=== PATIENT | female | born 1960 | race Caucasian/White ===

== ENCOUNTER 2018-03-04 09:24 | Emergency (ER) | payer OTHER ==
--- NOTE | 2018-03-04 09:45 | EDM.PDOC ---
ED HPI GENERAL MEDICAL PROBLEM - General Chief Complaint: Eye Problems Stated Complaint: SWOLLEN EYE Time Seen by Provider: 03/04/18 09:31 Source of Information: Reports: Patient History Limitations: Reports: No Limitations - History of Present Illness INITIAL COMMENTS - FREE TEXT/NARRATIVE: History of present illness: []Patient started having irritation in her left eye yesterday at work and this morning was crusted shut and has been more irritated and turning red. Changes Review of systems: As per history of present illness and below otherwise all systems reviewed and negative. Past medical history: As per history of present illness and as reviewed below otherwise noncontributory. Surgical history: As per history of present illness and as reviewed below otherwise noncontributory. Social history: No reported history of drug or alcohol abuse. Family history: As per history of present illness and as reviewed below otherwise noncontributory. Physical exam: General: Well developed, well nourished in NAD HEENT: Atraumatic, normocephalic, pupils reactive, left conjunctival erythema and excessive tearing no Drainage, mucous membranes moist, throat clear, neck supple, nontender, trachea midline. Lungs: Clear to auscultation, breath sounds equal bilaterally, chest nontender. Heart: S1S2, regular, negative for clicks, rubs, or JVD. Abdomen: NABS, Soft, nondistended, nontender. Negative for masses or hepatosplenomegaly. Negative for costovertebral tenderness. Pelvis: Stable nontender. Genitourinary: Deferred. Rectal: Deferred. Extremities: Atraumatic, negative for cords or calf pain. Neurovascular unremarkable. Neuro: Awake, alert, oriented. Cranial nerves II through XII unremarkable. Cerebellum unremarkable. Motor and sensory unremarkable throughout. Exam nonfocal. Skin:warm and dry Diagnostics: None Therapeutics: None ED Course: Remarkable Impression: Conjunctivitis left Prescriptions: Erythromycin ointment 3 times a day Plan: Off work for one day. Follow-up with ophthalmology her primary care as needed Definitive disposition and diagnosis as appropriate pending reevaluation and review of above. Left Eye Pain Score (Numeric/FACES): 8 - Related Data Allergies Allergy/AdvReac Type Severity Reaction Status Date / Time No Known Allergies Allergy Verified 03/04/18 09:38 Home Meds: Home Meds Clopidogrel [Plavix] 75 mg PO DAILY 03/04/18 [History] Erythromycin Base [Erythromycin 0.5% Ophth Oint] 1 applic OP Q12H #1 tube [Rx] Lisinopril 10 mg PO DAILY 03/04/18 [History] metFORMIN [Glucophage XR] 500 mg PO BID 03/04/18 [History] Past Medical History - Past Health History Medical/Surgical History: Denies Medical/Surgical History ED ROS GENERAL - Review of Systems Review Of Systems: ROS reveals no pertinent complaints other than HPI. ED EXAM GENERAL W FULL EYE - Physical Exam Exam: See Below (See history of present illness) Course - Vital Signs Last Recorded V/S: Last Vital Signs Temp 97.2 F 03/04/18 09:36 Pulse 92 03/04/18 09:36 Resp 18 03/04/18 09:36 BP 144/92 H 03/04/18 09:36 Pulse Ox 96 03/04/18 09:36 Departure - Departure Time of Disposition: 09:45 Disposition: Home, Self-Care 01 Condition: Good Clinical Impression: Conjunctivitis Qualifiers: Conjunctivitis type: unspecified Laterality: left Qualified Code(s): H10.9 - Unspecified conjunctivitis - Discharge Information *PRESCRIPTION DRUG MONITORING PROGRAM REVIEWED*: No *COPY OF PRESCRIPTION DRUG MONITORING REPORT IN PATIENT JOSÉ MIGUEL: No Prescriptions: Erythromycin Base [Erythromycin 0.5% Ophth Oint] 1 applic OP Q12H #1 tube Referrals: PCP,Unknown [Primary Care Provider] - Forms: ED Department Discharge Additional Instructions: The following information is given to patients seen in the emergency department who are being discharged to home. This information is to outline your options for follow-up care. We provide all patients seen in our emergency department with a follow-up referral. The need for follow-up, as well as the timing and circumstances, are variable depending upon the specifics of your emergency department visit. If you don't have a primary care physician on staff, we will provide you with a referral. We always advise you to contact your personal physician following an emergency department visit to inform them of the circumstance of the visit and for follow-up with them and/or the need for any referrals to a consulting specialist. The emergency department will also refer you to a specialist when appropriate. This referral assures that you have the opportunity for follow-up care with a specialist. All of these measure are taken in an effort to provide you with optimal care, which includes your follow-up. Under all circumstances we always encourage you to contact your private physician who remains a resource for coordinating your care. When calling for follow-up care, please make the office aware that this follow-up is from your recent emergency room visit. If for any reason you are refused follow-up, please contact the [facility] Emergency Department at and asked to speak to the emergency department charge nurse. [address] [address] [facility] [address], [place] [address]
[2018-03-04 09:55] VITALS: BP 119/84
== END 2018-03-04 09:53 | disposition home or self-care (01) ==
LOC: MW.ED 09:24
DX: H10.9 Unspecified conjunctivitis (principal); Z79.02 Long term (current) use of antithrombotics/antiplatelets; Z79.84 Long term (current) use of oral hypoglycemic drugs; Z79.899 Other long term (current) drug therapy
CPT/HCPCS: 99282

== ENCOUNTER 2019-11-12 10:44 | Emergency (ER) | payer OTHER ==
--- NOTE | 2019-11-12 10:54 | EDM.PDOC ---
ED HPI GENERAL MEDICAL PROBLEM - General Chief Complaint: Trauma Stated Complaint: HIT IN HEAD Time Seen by Provider: 11/12/19 10:51 Source of Information: Reports: Patient History Limitations: Reports: No Limitations - History of Present Illness INITIAL COMMENTS - FREE TEXT/NARRATIVE: 59-year-old female with history of TIA on Plavix presents with head injury at work. She was putting away an inner spring into a shelf, which rolled off and hit the back of her right scalp about 1 hour prior to arrival. She admits to a throbbing headache localized to the right occiput, right muscular neck pain. She denies LOC, nausea, vomiting, blurry vision, focal numbness or weakness. Her headache is localized to right occiput, moderate, rated at 6/10, nonradiating, no alleviating or exacerbating factors, constant. ROS: A 10-point review of systems, other than pertinent positives and negatives as stated per HPI, is otherwise negative Past medical history: No additional pertinent history Past Surgical history: No additional pertinent history Social history: No additional pertinent history Family history: No additional pertinent history PHYSICAL EXAM General: AOx4, GCS = 15, No distress HEENT: dry mucous membrane, 5 x 5 cm hematoma to the right posterior scalp, no active bleeding. Neck: supple, no meningismus, no Kernig or Brudzinski, right trapezius tenderness and swelling. Cardiac: S1S2 RRR Respiratory: CTAB, no crackles or rales, no wheezing Abdomen: Soft, nontender, no rebound or guarding, nondistended, no pulsatile mass. Back: nontender to cervical/thoracic/lumbar spine Musculoskeletal: NVI distally, no deformity Neuro: No focal deficits, CN 2 - 12 WNL. Head Pain Score (Numeric/FACES): 6 - Related Data Allergies Allergy/AdvReac Type Severity Reaction Status Date / Time No Known Allergies Allergy Verified 11/12/19 10:58 Home Meds: Home Meds Clopidogrel [Plavix] 75 mg PO DAILY 03/04/18 [History] Lisinopril 10 mg PO DAILY 03/04/18 [History] Baclofen 5 mg PO TID PRN 11/12/19 [History] Diclofenac Sodium [Voltaren] 1 applic TOP QID PRN 11/12/19 [History] metFORMIN [Glucophage] 500 mg PO BIDMEALS 11/12/19 [History] Past Medical History - Past Health History Medical/Surgical History: Denies Medical/Surgical History Cardiovascular History: Reports: Hypertension Endocrine/Metabolic History: Reports: Diabetes, Type II - Infectious Disease History Infectious Disease History: Reports: Chicken Pox, Measles, Mumps - Past Surgical History Female Surgical History: Reports: Section, Hysterectomy Social & Family History - Family History Family Medical History: Noncontributory Review of Systems - Review of Systems Review Of Systems: See Below (see dictation) ED EXAM, GENERAL - Physical Exam Exam: See Below (see dictation) Course - Vital Signs Last Recorded V/S: Last Vital Signs Temp 97.5 F 11/12/19 11:32 Pulse 94 11/12/19 11:32 Resp 16 11/12/19 11:32 BP 137/91 H 11/12/19 11:32 Pulse Ox 97 11/12/19 11:32 - Re-Assessments/Exams Free Text/Narrative Re-Assessment/Exam: 11/12/19 1235 After a long observation in the ER, the patient improved and is currently stable for discharge. I performed a repeat exam and did not appreciate new abnormal findings. Patient exhibits normal vital signs and has a normal gait on road test. I advised the patient to return to the ER for reevaluation if symptoms worsened, including fever, worsening pain, or any other worrisome symptoms. I instructed the patient to follow up with their PCP within 2-3 days. MEDICAL DECISION MAKING: I reviewed the patients past medical records, lab and radiographic findings. I discussed the case with the patient. My differential diagnosis included: Scalp hematoma, contusion, ICH. CT head was unremarkable for ICH or skull fracture. Patient was asymptomatic upon discharge with no focal deficits. Departure - Departure Time of Disposition: 12:35 Disposition: Home, Self-Care 01 Condition: Good Clinical Impression: Scalp contusion - Discharge Information *PRESCRIPTION DRUG MONITORING PROGRAM REVIEWED*: Not Applicable *COPY OF PRESCRIPTION DRUG MONITORING REPORT IN PATIENT JOSÉ MIGUEL: Not Applicable Instructions: How to Use Cold Therapy, [id number], Facial or Scalp Contusion, [id number] Referrals: Jonh Rico MD [Primary Care Provider] - 1 Week Forms: ED Department Discharge Additional Instructions: The need for follow-up, as well as the timing and circumstances, are variable depending upon the specifics of your emergency department visit. If you don't have a primary care physician on staff, we will provide you with a referral. We always advise you to contact your personal physician following an emergency department visit to inform them of the circumstance of the visit and for follow-up with them and/or the need for any referrals to a consulting specialist. The emergency department will also refer you to a specialist when appropriate. This referral assures that you have the opportunity for follow-up care with a specialist. All of these measure are taken in an effort to provide you with optimal care, which includes your follow-up. Under all circumstances we always encourage you to contact your private physician who remains a resource for coordinating your care. When calling for follow-up care, please make the office aware that this follow-up is from your recent emergency room visit. If for any reason you are refused follow-up, please contact the [facility] Emergency Department at and asked to speak to the emergency department charge nurse. If you do not have a primary care doctor, please follow up with the clinics below within 3-5 days. [facility] - [facility] [address] [place] [id number] [facility] [address] [place] [id number] Sepsis Event Note (ED) - Focused Exam Vital Signs: Vital Signs Temp Pulse Resp BP Pulse Ox 11/12/19 11:32 97.5 F 94 16 137/91 H 97 11/12/19 11:17 97.6 F 95 18 141/91 H 99 11/12/19 11:02 103 H 18 140/87 96 11/12/19 10:58 97.2 F 116 H 20 136/94 H 96
--- NOTE | 2019-11-12 11:42 | CT ---
CT cervical spine Technique: Multiple axial sections through the cervical spine were obtained. Study is obtained from above C1 inferiorly to the upper T3 vertebral body. Reconstructed sagittal and coronal images were reviewed. Comparison: No prior cervical spine imaging is available. Findings: Mild disc space narrowing is noted at C3-C4 and C4-C5. Mild posterior osteophytes are noted at C3-C4 and C4-C5 as well as at C6-C7. Mild disc space narrowing is noted at C6-C7. Moderate to severe left-sided neural foraminal stenosis is noted at C3-C4. Other neural foramina are felt to be fairly well patent. Mild scattered degenerative apophyseal change is seen throughout the cervical and upper thoracic spine. Incomplete posterior arch of C1 is noted which is a normal variant. No fracture is seen. Minimal spondylolisthesis is noted at C5-C6 due to degenerative apophyseal change. Impression: 1. Mild degenerative change as described above. 2. No acute fracture is appreciated on CT study of the cervical spine. Diagnostic code #2 This report was dictated in MDT
--- NOTE | 2019-11-12 11:47 | CT ---
Head CT Technique: Multiple axial sections through the brain were obtained. Intravenous contrast was not utilized. Comparison: Prior head CT study of 11/17/13. Findings: Ventricles along with basal cisterns and sulci are convexities are within normal limits for the patient's age. No abnormal parenchymal densities are seen. Soft tissue swelling and small hematoma is noted within the posterior right scalp. No intracranial hemorrhage is seen. No midline shift or mass effect is seen. Bone window settings were reviewed. No acute calvarial abnormality is appreciated. Visualized mastoid sinuses are clear. No air-fluid levels are seen within both maxillary sinuses. Moderate mucosal thickening is noted within the ethmoid and frontal sinuses. Mild mucosal thickening is seen within the sphenoid sinus. Impression: 1. Sinus findings, as noted above, suspicious for pre-existing acute sinusitis. 2. Soft tissue swelling and hematoma within the posterior right scalp. 3. No acute intracranial abnormality is appreciated. Diagnostic code #3 This report was dictated in MDT
[2019-11-12] MEDS ORDERED: Acetaminophen 325 MG Tab PO ONE (12:44)
[2019-11-12 12:58] VITALS: BP 157/88; PULSE 95
== END 2019-11-12 13:00 | disposition home or self-care (01) ==
LOC: MW.ED 10:44
DX: S00.03XA Contusion of scalp, initial encounter (principal); I10 Essential (primary) hypertension; E11.9 Type 2 diabetes mellitus without complications; Z90.710 Acquired absence of both cervix and uterus; Z79.899 Other long term (current) drug therapy; Z79.02 Long term (current) use of antithrombotics/antiplatelets; Z79.84 Long term (current) use of oral hypoglycemic drugs; W22.8XXA Striking against or struck by other objects, initial encounter; Y92.89 Other specified places as the place of occurrence of the external cause
CPT/HCPCS: 70450; 72125; 99283; A9270; 99282

== ENCOUNTER 2021-02-24 13:47 | Observation (INO) | payer BC, OTHER ==
--- NOTE | 2021-02-24 14:04 | EDM.PDOC ---
ED HPI GENERAL MEDICAL PROBLEM - General Chief Complaint: Neuro Symptoms/Deficits Stated Complaint: POSS STROKE Time Seen by Provider: 02/24/21 13:47 Source of Information: Reports: Patient History Limitations: Reports: No Limitations - History of Present Illness INITIAL COMMENTS - FREE TEXT/NARRATIVE: 61-year-old female past medical history TIA, [id number] diabetes, on Plavix presents for concern for stroke versus TIA. Patient states that roughly 30 minutes prior to arrival she began to experience sudden onset right upper extremity numbness sensation with decreased baseball winder strength. She also felt that her speech was slurred and confused. Symptoms went away after about 10 to 15 minutes and she currently states that her hand feels a little numb but she is able to feel it much better and she is no longer having any muscle weakness. She denies any confusion or slurred speech right now. - Related Data Allergies Allergy/AdvReac Type Severity Reaction Status Date / Time No Known Allergies Allergy Verified 02/24/21 14:07 Home Meds: Home Meds Clopidogrel [Plavix] 75 mg PO DAILY 03/04/18 [History] Lisinopril 10 mg PO DAILY 03/04/18 [History] Baclofen 5 mg PO TID PRN 11/12/19 [History] Past Medical History - Past Health History Medical/Surgical History: Denies Medical/Surgical History Cardiovascular History: Reports: Hypertension Endocrine/Metabolic History: Reports: Diabetes, Type II - Infectious Disease History Infectious Disease History: Reports: Chicken Pox, Measles, Mumps - Past Surgical History Female Surgical History: Reports: Section, Hysterectomy Social & Family History - Family History Family Medical History: No Pertinent Family History - Caffeine Use Caffeine Use: Reports: None ED ROS GENERAL - Review of Systems Review Of Systems: Comprehensive ROS is negative, except as noted in HPI. ED EXAM, GENERAL - Physical Exam Exam: See Below Exam Limited By: No Limitations General Appearance: Alert, WD/WN, No Apparent Distress Eye Exam: Bilateral Eye: EOMI, PERRL Ears: Hearing Grossly Normal Throat/Mouth: Normal Voice, No Airway Compromise Head: Atraumatic, Normocephalic Respiratory/Chest: No Respiratory Distress, Lungs Clear, Normal Breath Sounds, No Accessory Muscle Use Cardiovascular: Normal Peripheral Pulses, Regular Rate, Rhythm Extremities: Normal Inspection Neurological: Alert, CN II-XII Intact, Normal Cognition, Normal Gait, No Motor/Sensory Deficits Psychiatric: Normal Affect, Normal Mood Skin Exam: Warm, Dry, Intact, Normal Color #1 Interpretation EKG Date: 02/24/21 Time: 13:48 Rhythm: NSR Rate (Beats/Min): 108 [place]: Normal P-Wave: Present QRS: Normal ST-T: Normal QT: Normal NC/PQ Interval: 137 EKG Interpretation Comments: No acute ischemic changes Course - Vital Signs Last Recorded V/S: Last Vital Signs Temp 98.2 F 02/24/21 14:02 Pulse 103 H 02/24/21 14:02 Resp 20 02/24/21 14:02 BP 153/86 H 02/24/21 14:02 Pulse Ox 99 02/24/21 14:02 - Orders/Labs/Meds Orders: Active Orders 24 hr Category Date Time Status Blood Glucose Check, Bedside [RC] ONETIME Care 02/24/21 13:53 Active Ang Head [CT] Stat Exams 02/24/21 15:01 Ordered Ang Neck [CT] Stat Exams 02/24/21 15:01 Ordered Brain wo Cont [MR] Stat Exams 02/24/21 15:01 Ordered Saline Lock Insert [OM.PC] Stat Oth 02/24/21 13:52 Ordered Labs: Laboratory Tests 02/24/21 02/24/21 02/24/21 Range/Units 13:56 13:56 13:56 WBC 9.78 (4.0-11.0) K/uL RBC 4.58 (4.30-5.90) M/uL Hgb 13.5 (12.0-16.0) g/dL Hct 41.3 (36.0-46.0) % MCV 90.2 (80.0-98.0) fL MCH 29.5 (27.0-32.0) pg MCHC 32.7 (31.0-37.0) g/dL RDW Std Deviation 42.3 (28.0-62.0) fl RDW Coeff of Mray 13 (11.0-15.0) % Plt Count 371 (150-400) K/uL MPV 9.00 (7.40-12.00) fL Neut % (Auto) 63.2 (48.0-80.0) % Lymph % (Auto) 27.0 (16.0-40.0) % Harris % (Auto) 5.4 (0.0-15.0) % Eos % (Auto) 4.0 (0.0-7.0) % Baso % (Auto) 0.4 (0.0-1.5) % Neut # (Auto) 6.2 H (1.4-5.7) K/uL Lymph # (Auto) 2.6 H (0.6-2.4) K/uL Harris # (Auto) 0.5 (0.0-0.8) K/uL Eos # (Auto) 0.4 (0.0-0.7) K/uL Baso # (Auto) 0.0 (0.0-0.1) K/uL Nucleated RBC % 0.0 /100WBC Nucleated RBCs # 0 K/uL INR 0.97 APTT 23.8 (18.6-31.3) SEC Sodium (136-145) mmol/L Potassium (3.5-5.1) mmol/L Chloride (98-107) mmol/L Carbon Dioxide (21.0-32.0) mmol/L BUN (7.0-18.0) mg/dL Creatinine (0.6-1.0) mg/dL Est Cr Clr Drug Dosing mL/min Estimated GFR (MDRD) ml/min Glucose (74-106) mg/dL Calcium (8.5-10.1) mg/dL Total Bilirubin (0.2-1.0) mg/dL AST (15-37) IU/L ALT (14-63) IU/L Alkaline Phosphatase (46-116) U/L Troponin I (0.000-0.056) ng/mL Total Protein (6.4-8.2) g/dL Albumin (3.4-5.0) g/dL Globulin (2.6-4.0) g/dL Albumin/Globulin Ratio (0.9-1.6) SARS-CoV-2 RNA (MARIE) NEGATIVE (NEGATIVE) 02/24/21 Range/Units 13:56 WBC (4.0-11.0) K/uL RBC (4.30-5.90) M/uL Hgb (12.0-16.0) g/dL Hct (36.0-46.0) % MCV (80.0-98.0) fL MCH (27.0-32.0) pg MCHC (31.0-37.0) g/dL RDW Std Deviation (28.0-62.0) fl RDW Coeff of Mary (11.0-15.0) % Plt Count (150-400) K/uL MPV (7.40-12.00) fL Neut % (Auto) (48.0-80.0) % Lymph % (Auto) (16.0-40.0) % Harris % (Auto) (0.0-15.0) % Eos % (Auto) (0.0-7.0) % Baso % (Auto) (0.0-1.5) % Neut # (Auto) (1.4-5.7) K/uL Lymph # (Auto) (0.6-2.4) K/uL Harris # (Auto) (0.0-0.8) K/uL Eos # (Auto) (0.0-0.7) K/uL Baso # (Auto) (0.0-0.1) K/uL Nucleated RBC % /100WBC Nucleated RBCs # K/uL INR APTT (18.6-31.3) SEC Sodium 139 (136-145) mmol/L Potassium 3.7 (3.5-5.1) mmol/L Chloride 103 (98-107) mmol/L Carbon Dioxide 26.9 (21.0-32.0) mmol/L BUN 25 H (7.0-18.0) mg/dL Creatinine 0.9 (0.6-1.0) mg/dL Est Cr Clr Drug Dosing 65.45 mL/min Estimated GFR (MDRD) > 60.0 ml/min Glucose 116 H (74-106) mg/dL Calcium 9.1 (8.5-10.1) mg/dL Total Bilirubin 0.4 (0.2-1.0) mg/dL AST 31 (15-37) IU/L ALT 33 (14-63) IU/L Alkaline Phosphatase 92 (46-116) U/L Troponin I < 0.050 (0.000-0.056) ng/mL Total Protein 7.7 (6.4-8.2) g/dL Albumin 3.9 (3.4-5.0) g/dL Globulin 3.8 (2.6-4.0) g/dL Albumin/Globulin Ratio 1.0 (0.9-1.6) SARS-CoV-2 RNA (MARIE) (NEGATIVE) Meds: Medications Discontinued Medications Generic Name Dose Route Start Last Admin Trade Name Aris PRN Reason Stop Dose Admin Aspirin 325 mg 02/24/21 14:45 02/24/21 14:58 Aspirin 325 Mg Tab PO 02/24/21 14:46 325 mg STAT STA Administration - Re-Assessments/Exams Free Text/Narrative Re-Assessment/Exam: 02/24/21 14:04 Patient symptoms are concerning for transient ischemic attack. Head CT and appropriate labs ordered. 02/24/21 14:04 NIHSS = 0 02/24/21 15:[address] imaging are unremarkable. I did have a discussion with the hospitalist Dr. Lewis who recommends observation admission and recommend CTA of the head and neck as well as MRI of the head. Fortunately we do have MRI availability today as the patient will go for imaging now. Patient is agreeable for observation admission. She did get a dose of 325 mg aspirin in the emergency department. Departure - Departure Time of Disposition: 15:06 Disposition: Refer to Observation Condition: Good Clinical Impression: TIA (transient ischemic attack) - Discharge Information Referrals: PCP,None [Primary Care Provider] - Forms: ED Department Discharge Sepsis Event Note (ED) - Focused Exam Vital Signs: Vital Signs Temp Pulse Resp BP Pulse Ox 02/24/21 14:02 98.2 F 103 H 20 153/86 H 99 - My Orders Last 24 Hours: My Active Orders 02/24/21 13:52 Saline Lock Insert [OM.PC] Stat 02/24/21 13:53 Blood Glucose Check, Bedside [RC] ONETIME 02/24/21 15:01 Ang Head [CT] Stat Ang Neck [CT] Stat Brain wo Cont [MR] Stat - Assessment/Plan Last 24 Hours: My Active Orders 02/24/21 13:52 Saline Lock Insert [OM.PC] Stat 02/24/21 13:53 Blood Glucose Check, Bedside [RC] ONETIME 02/24/21 15:01 Ang Head [CT] Stat Ang Neck [CT] Stat Brain wo Cont [MR] Stat
--- NOTE | 2021-02-24 14:31 | CT ---
INDICATION: CVA. TECHNIQUE: CT head without contrast. COMPARISON: 11/12/2019. FINDINGS: CSF spaces: Within normal limits for age. Brain parenchyma and extra-axial spaces: The taveras-white differentiation is normal. No sign of mass, hemorrhage, or midline shift. No extra-axial fluid collection. Skull base and calvarium: Small amount of debris present in the left maxillary sinus. The visualized orbits are grossly unremarkable. No skull fractures. IMPRESSION: No sign of CVA or other significant finding. Minimal left maxillary inflammatory sinus disease. No other change from the prior exam. Please note that all CT scans at this facility use dose modulation, iterative reconstruction, and/or weight-based dosing when appropriate to reduce radiation dose to as low as reasonably achievable. Dictated by Arturo Alves MD @ 02/24/2021 2:29:32 PM (Electronically Signed)
[2021-02-24 14:36] LABS: BLOOD UREA NITROGEN,BUN 25 mg/dL (7.0-18.0); CARBON DIOXIDE,CO2 26.9 mmol/L (21.0-32.0); GLUCOSE RANDOM 116 mg/dL (74-106)
[2021-02-24 14:40] LABS: CHLORIDE,CL 103 mmol/L (98-107); POTASSIUM,K 3.7 mmol/L (3.5-5.1); SODIUM,NA 139 mmol/L (136-145)
[2021-02-24] MEDS ORDERED: Aspirin 325 MG Tab PO STA (14:45)
--- NOTE | 2021-02-24 16:12 | MR ---
INDICATION: Transient ischemic attack. TECHNIQUE: Multiplanar multisequence noncontrast MR images acquired through the brain. COMPARISON: CT brain 02/24/2021, MRI brain 10/23/2013. FINDINGS: Small cortically based chronic infarctions within the high parietal lobes are new compared to the prior exam. Interval evolution of the small chronic cortical based infarction in the posterior right frontal lobe. New chronic lacunar infarction in the inferior left cerebellar hemisphere. Prominence of the ventricles and sulci compatible with a slight degree of diffuse cerebral volume loss. No mass effect or midline shift. Scattered T2 FLAIR hyperintensities in the supratentorial white matter have slightly progressed, and are typical for mild chronic microvascular ischemic changes. No diffusion restriction to suggest acute infarction. No intracranial hemorrhage or pathologic extra-axial fluid collection. The major arterial flow voids of the skullbase are preserved. The globes are symmetric. Mild paranasal sinus mucosal thickening. Trace mastoid fluid bilaterally. IMPRESSION: 1. No acute infarction, mass effect, or intracranial hemorrhage. 2. Small chronic cortically based infarctions in the parietal lobes and chronic lacunar infarction in the left cerebellar hemisphere are new compared to 10/23/2013. 3. Small chronic cortically based infarction in the posterior right frontal lobe. 4. Mild chronic microvascular ischemic changes have slightly progressed. Dictated by Kelby Sow MD @ 02/24/2021 4:11:18 PM (Electronically Signed)
[2021-02-24] MEDS ORDERED: diphenhydrAMINE 50 MG/ML SDV IVPUSH ONE (16:13)
[2021-02-24] MEDS ORDERED: methylPREDNISolone Sodium Succinate 125 MG/2 ML SDV IVPUSH ONE (16:13)
[2021-02-24] MEDS ORDERED: methylPREDNISolone Sodium Succinate 125 MG/2 ML SDV ONE (16:14)
[2021-02-24] MEDS ORDERED: diphenhydrAMINE 50 MG/ML SDV ONE (16:14)
[2021-02-24] MEDS ORDERED: Iopamidol 755 MG/ML 500 ML Multipack Bottle IVPUSH ONE (16:59)
[2021-02-24] MEDS ORDERED: Enoxaparin 40 MG/0.4 ML Syringe SUBCUT SCH (17:15)
--- NOTE | 2021-02-24 17:37 | PCM.HP.2 ---
H&P History of Present Illness - General Date of Service: 02/24/21 Admit Problem/Dx: Admission Diagnosis/Problem Admission Diagnosis/Problem TIA, Transient ischemic attack - History of Present Illness Initial Comments - Free Text/Narative: The patient is a 61-year-old female, on day 1 of service, who has a significant past medical history of hypertension, back pain, and cerebrovascular accident in 2013 currently treated with Plavix and lisinopril, who was admitted to the medical floor due to a transischemic attack. 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 After 2 minutes of the symptoms everything went back to normal and she was no longer exhibiting symptoms. She denies changes in voice or vision, difficulty swallowing, seizures, shakes, chest pain, palpitations, recent COVID-19 infection, recent sick contacts, nausea, vomiting, or any issues with urination and/or defecation. Her who was with her when the symptoms started to occur says that she has been stressed recently due to their financial issues. She does not follow a healthy diet which is balanced. On social history, she denies smoking, recreatio nal drug use, and alcohol consumption. Her family history is significant for hypertension. She has no other health concerns at this time. - Related Data Allergies/Adverse Reactions: Allergies Allergy/AdvReac Type Severity Reaction Status Date / Time No Known Allergies Allergy Verified 02/24/21 14:07 Home Medications: Home Meds Clopidogrel [Plavix] 75 mg PO DAILY 03/04/18 [History] Lisinopril 10 mg PO DAILY 03/04/18 [History] Baclofen 5 mg PO TID PRN 11/12/19 [History] Past Medical History - Past Health History Medical/Surgical History: Denies Medical/Surgical History Cardiovascular History: Reports: Hypertension Endocrine/Metabolic History: Reports: Diabetes, Type II - Infectious Disease History Infectious Disease History: Reports: Chicken Pox, Measles, Mumps - Past Surgical History Female Surgical History: Reports: Section, Hysterectomy Social & Family History - Family History Family Medical History: No Pertinent Family History - Tobacco Use Second Hand Smoke Exposure: No - Caffeine Use Caffeine Use: Reports: None - Recreational Drug Use Recreational Drug Use: No H&P Review of Systems - Review of Systems: Review Of Systems: See Below General: Reports: Weakness, Fatigue. Denies: Fever, Chills HEENT: Denies: Headaches, Sore Throat Pulmonary: Denies: Shortness of Breath, Cough Cardiovascular: Denies: Chest Pain, Palpitations Gastrointestinal: Denies: Abdominal Pain, Vomiting Genitourinary: Denies: Dysuria Neurological: Reports: Dizziness, Numbness Exam - Exam Exam: See Below - Vital Signs Vital Signs: Last Vital Signs Temp 98.2 F 02/24/21 14:02 Pulse 82 02/24/21 15:11 Resp 17 02/24/21 15:11 BP 144/91 H 02/24/21 15:11 Pulse Ox 97 02/24/21 15:11 Weight: 170 lb - Exam General: Alert, Oriented, Cooperative HEENT: Mucosa Moist & [place] Neck: Trachea Midline Lungs: Clear to Auscultation, Normal Respiratory Effort Cardiovascular: Regular Rate, Regular Rhythm GI/Abdominal Exam: Normal Bowel Sounds, Soft, Non-Tender Neurological: Normal Speech, Sensation Intact Neuro Extensive - Mental Status: Alert, Oriented x3. No: Disorientation to Person Neuro Extensive - Motor, Sensory, Reflexes: CN II-XII Intact. No: Ataxia, Dysarthria, Expressive Aphasia - Patient Data Lab Results Last 24 hrs: Laboratory Results - last 24 hr 02/24/21 02/24/21 02/24/21 Range/Units 13:56 13:56 13:56 WBC 9.78 (4.0-11.0) K/uL RBC 4.58 (4.30-5.90) M/uL Hgb 13.5 (12.0-16.0) g/dL Hct 41.3 (36.0-46.0) % MCV 90.2 (80.0-98.0) fL MCH 29.5 (27.0-32.0) pg MCHC 32.7 (31.0-37.0) g/dL RDW Std Deviation 42.3 (28.0-62.0) fl RDW Coeff of Mary 13 (11.0-15.0) % Plt Count 371 (150-400) K/uL MPV 9.00 (7.40-12.00) fL Neut % (Auto) 63.2 (48.0-80.0) % Lymph % (Auto) 27.0 (16.0-40.0) % [place] % (Auto) 5.4 (0.0-15.0) % Eos % (Auto) 4.0 (0.0-7.0) % Baso % (Auto) 0.4 (0.0-1.5) % Neut # (Auto) 6.2 H (1.4-5.7) K/uL Lymph # (Auto) 2.6 H (0.6-2.4) K/uL [place] # (Auto) 0.5 (0.0-0.8) K/uL Eos # (Auto) 0.4 (0.0-0.7) K/uL Baso # (Auto) 0.0 (0.0-0.1) K/uL Nucleated RBC % 0.0 /100WBC Nucleated RBCs # 0 K/uL INR 0.97 APTT 23.8 (18.6-31.3) SEC Sodium (136-145) mmol/L Potassium (3.5-5.1) mmol/L Chloride (98-107) mmol/L Carbon Dioxide (21.0-32.0) mmol/L BUN (7.0-18.0) mg/dL Creatinine (0.6-1.0) mg/dL Est Cr Clr Drug Dosing mL/min Estimated GFR (MDRD) ml/min Glucose (74-106) mg/dL Calcium (8.5-10.1) mg/dL Total Bilirubin (0.2-1.0) mg/dL AST (15-37) IU/L ALT (14-63) IU/L Alkaline Phosphatase (46-116) U/L Troponin I (0.000-0.056) ng/mL Total Protein (6.4-8.2) g/dL Albumin (3.4-5.0) g/dL Globulin (2.6-4.0) g/dL Albumin/Globulin Ratio (0.9-1.6) SARS-CoV-2 RNA (MARIE) NEGATIVE (NEGATIVE) 02/24/21 Range/Units 13:56 WBC (4.0-11.0) K/uL RBC (4.30-5.90) M/uL Hgb (12.0-16.0) g/dL Hct (36.0-46.0) % MCV (80.0-98.0) fL MCH (27.0-32.0) pg MCHC (31.0-37.0) g/dL RDW Std Deviation (28.0-62.0) fl RDW Coeff of Mary (11.0-15.0) % Plt Count (150-400) K/uL MPV (7.40-12.00) fL Neut % (Auto) (48.0-80.0) % Lymph % (Auto) (16.0-40.0) % [place] % (Auto) (0.0-15.0) % Eos % (Auto) (0.0-7.0) % Baso % (Auto) (0.0-1.5) % Neut # (Auto) (1.4-5.7) K/uL Lymph # (Auto) (0.6-2.4) K/uL [place] # (Auto) (0.0-0.8) K/uL Eos # (Auto) (0.0-0.7) K/uL Baso # (Auto) (0.0-0.1) K/uL Nucleated RBC % /100WBC Nucleated RBCs # K/uL INR APTT (18.6-31.3) SEC Sodium 139 (136-145) mmol/L Potassium 3.7 (3.5-5.1) mmol/L Chloride 103 (98-107) mmol/L Carbon Dioxide 26.9 (21.0-32.0) mmol/L BUN 25 H (7.0-18.0) mg/dL Creatinine 0.9 (0.6-1.0) mg/dL Est Cr Clr Drug Dosing 65.45 mL/min Estimated GFR (MDRD) > 60.0 ml/min Glucose 116 H (74-106) mg/dL Calcium 9.1 (8.5-10.1) mg/dL Total Bilirubin 0.4 (0.2-1.0) mg/dL AST 31 (15-37) IU/L ALT 33 (14-63) IU/L Alkaline Phosphatase 92 (46-116) U/L Troponin I < 0.050 (0.000-0.056) ng/mL Total Protein 7.7 (6.4-8.2) g/dL Albumin 3.9 (3.4-5.0) g/dL Globulin 3.8 (2.6-4.0) g/dL Albumin/Globulin Ratio 1.0 (0.9-1.6) SARS-CoV-2 RNA (MARIE) (NEGATIVE) Result Diagrams: 02/24/21 13:56 02/24/21 13:56 Sepsis Event Note - Evaluation Sepsis Screening Result: No Definite Risk - Focused Exam Vital Signs: Vital Signs Temp Pulse Resp BP Pulse Ox 02/24/21 15:11 82 17 144/91 H 97 02/24/21 14:02 98.2 F 103 H 20 153/86 H 99 - Problem List (1) TIA (transient ischemic attack) SNOMED Code(s): 162078636 ICD Code: G45.9 - TRANSIENT CEREBRAL ISCHEMIC ATTACK, UNSPECIFIED Status: Acute Current Visit: Yes Problem List Initiated/Reviewed/Updated: Yes Orders Last 24hrs: Active Orders 24 hr Category Date Time Status Patient Status [ADT] Routine ADT 02/24/21 15:47 Active Blood Glucose Check, Bedside [RC] ONETIME Care 02/24/21 13:53 Active Heart Healthy Diet [DIET] Diet 02/25/21 Breakfast Active Ang Head [CT] Stat Exams 02/24/21 15:01 Taken Ang Neck [CT] Stat Exams 02/24/21 15:01 Taken Echo Comp wo Cont [US] Stat Exams 02/24/21 15:34 Ordered CBC WITH AUTO DIFF [HEME] AM Lab 02/25/21 05:11 Ordered CBC WITH AUTO DIFF [HEME] AM Lab 02/26/21 05:11 Ordered CBC WITH AUTO DIFF [HEME] AM Lab 02/27/21 05:11 Ordered CMP [COMPREHENSIVE METABOLIC PN,CMP] [CHEM] AM Lab 02/25/21 05:11 Ordered CMP [COMPREHENSIVE METABOLIC PN,CMP] [CHEM] AM Lab 02/26/21 05:11 Ordered CMP [COMPREHENSIVE METABOLIC PN,CMP] [CHEM] AM Lab 02/27/21 05:11 Ordered Clopidogrel [Plavix] Med 02/24/21 17:15 Active 75 mg PO DAILY Enoxaparin [Lovenox] Med 02/24/21 17:15 Active 40 mg SUBCUT Q24H Pantoprazole [ProTONIX] Med 02/24/21 17:15 Active 40 mg PO DAILY lisinopriL [Prinivil] Med 02/24/21 17:15 Active 10 mg PO DAILY Saline Lock Insert [OM.PC] Stat Oth 02/24/21 13:52 Ordered Code Status [Resuscitation Status] Stat Resus Stat 02/24/21 17:10 Ordered Medication Orders Clopidogrel Bisulfate (Clopidogrel 75 Mg Tab) 75 mg PO DAILY [facility] Enoxaparin Sodium (Enoxaparin 40 Mg/0.4 Ml Syringe) 40 mg SUBCUT Q24H [facility] Lisinopril (Lisinopril 10 Mg Tab) 10 mg PO DAILY [facility] Pantoprazole Sodium (Pantoprazole 40 Mg Tab.Cr) 40 mg PO DAILY [facility] Assessment/Plan Comment:: Admit the patient to the medical floor, vitals per unit routine, activity up ad tennille., heart healthy diet, DVT prophylaxis with Lovenox, GI prophylaxis with pantoprazole, the patient is full code 1. TIA -Continue Plavix for anticoagulation -Continue lisinopril for blood pressure control -Continue to monitor symptoms and treat accordingly -Daily CBC/CMP
--- NOTE | 2021-02-24 17:40 | CT ---
DATE: 02/24/2021. CLINICAL HISTORY: Transient ischemic attack. TECHNIQUE: Standard helical CT image acquisition through the head and neck was performed after intravenous contrast bolus enhancement. Multiplanar reconstructed images were performed and interpreted. COMPARISON: None available. FINDINGS: The origins of the great vessels from the aortic arch are patent. The origins of the right and left vertebral arteries are patent. The common carotid arteries are patent. No significant luminal stenoses of the proximal internal carotid arteries by NASCET criteria. The more distal cervical segments of the internal carotid arteries are patent. The cervical segments of the vertebral arteries are patent although hypoplastic secondary to the presence of bilateral origins of the posterior cerebral arteries. No intracranial proximal large vessel occlusion or flow-limiting luminal stenosis. The major dural venous sinuses and deep venous system are patent. The visualized lung apices are unremarkable. The thyroid gland is unremarkable. Degenerative changes of the cervical spine. IMPRESSION: 1. No intracranial proximal large vessel occlusion or flow-limiting luminal stenosis. 2. Patent cervical arterial vasculature without hemodynamically significant luminal stenosis. Please note that all CT scans at this facility use dose modulation, iterative reconstruction, and/or weight-based dosing when appropriate to reduce radiation dose to as low as reasonably achievable. Dictated by Thang Irvin MD @ 02/24/2021 5:40:06 PM (Electronically Signed)
[2021-02-24] MEDS: Lisinopril 10 MG Tab PO SCH (18:49)
[2021-02-24] MEDS: Clopidogrel 75 MG Tab PO SCH (18:49)
[2021-02-24] MEDS: Pantoprazole 40 MG Tab.CR PO SCH (18:58)
[2021-02-25 08:27] LABS: BLOOD UREA NITROGEN,BUN 20 mg/dL (7.0-18.0); CARBON DIOXIDE,CO2 26.3 mmol/L (21.0-32.0); CHLORIDE,CL 100 mmol/L (98-107); GLUCOSE RANDOM 120 mg/dL (74-106); SODIUM,NA 138 mmol/L (136-145)
[2021-02-25] MEDS: Lisinopril 10 MG Tab PO SCH (08:36)
[2021-02-25] MEDS: Clopidogrel 75 MG Tab PO SCH (08:37)
[2021-02-25] MEDS: Pantoprazole 40 MG Tab.CR PO SCH (08:37)
[2021-02-25 13:53] VITALS: BP 149/101; PULSE 83
--- NOTE | 2021-02-25 14:35 | PCM.DCSUM1 ---
Discharge Summary - Discharge Data Discharge Date: 02/25/21 Discharge Disposition: Home, Self-Care 01 Condition: Good - Referral to Home Health Primary Care Physician: PCP None - Patient Summary/Data Hospital Course: The patient is a 61-year-old female, with pmh of hypertension, diabetes, and CVA who presented with right hand and forearm weakness and numbness. She also had slurred speech. Symptoms had resolved by the time she visited the ER. Work up was significant for CT head reported no evidence of CVA, CTA neck reported patent arteries. MRI brain reported no acute infarction, small chronic cortically based infarctions in the parietal lobes and chronic lacunar infarction in the left cerebellar hemisphere that are new compared to 10/23/2013. Small chronic cortically based infarction in the posterior right frontal lobe. Patient was monitored overnight with no events on telemetery. She was discharged home. Lipitor was added to her home medicaitons of lisinopril and pl avix. She is to follow up with her PCP in two weeks. - Patient Instructions Diet: Heart Healthy Diet, Diabetic Diet Activity: As Tolerated Other/Special Instructions: Check blood glucose and blood pressure at least once daily at home. - Discharge Plan Prescriptions/Med Rec: atorvaSTATin [Lipitor] 40 mg PO BEDTIME #30 tab Home Medications: Home Meds Clopidogrel [Plavix] 75 mg PO DAILY 03/04/18 [History] Lisinopril 10 mg PO DAILY 03/04/18 [History] metFORMIN [Glucophage XR] 1,000 mg PO QAM 02/24/21 [History] atorvaSTATin [Lipitor] 40 mg PO BEDTIME #30 tab 02/25/21 [Rx] Patient Handouts: Atorvastatin Tablets, Transient Ischemic Attack Referrals: PCP,None [Primary Care Provider] - Jonh Rico MD [Ordering Only Provider] - (follow up in 1 week. For 2 D Echo outpatient.) - Discharge Summary/Plan Comment DC Time >30 min.: No Total # of Minutes for Discharge Time: 15 - Patient Data Vitals - Most Recent: Last Vital Signs Temp 36.4 C 02/25/21 13:00 Pulse 83 02/25/21 13:00 Resp 17 02/25/21 13:00 BP 149/101 H 02/25/21 13:00 Pulse Ox 97 02/25/21 13:00 Weight - Most Recent: 78.653 kg I&O - Last 24 hours: Intake & Output 02/24/21 02/25/21 02/25/21 22:59 06:59 14:59 Intake Total 400 Output Total 300 Balance 100 Lab Results - Last 24 hrs: Laboratory Results - last 24 hr 02/24/21 02/24/21 02/25/21 Range/Units 13:56 13:56 06:38 WBC (4.0-11.0) K/uL RBC (4.30-5.90) M/uL Hgb (12.0-16.0) g/dL Hct (36.0-46.0) % MCV (80.0-98.0) fL MCH (27.0-32.0) pg MCHC (31.0-37.0) g/dL RDW Std Deviation (28.0-62.0) fl RDW Coeff of Mary (11.0-15.0) % Plt Count (150-400) K/uL MPV (7.40-12.00) fL Neut % (Auto) (48.0-80.0) % Lymph % (Auto) (16.0-40.0) % [place] % (Auto) (0.0-15.0) % Eos % (Auto) (0.0-7.0) % Baso % (Auto) (0.0-1.5) % Neut # (Auto) (1.4-5.7) K/uL Lymph # (Auto) (0.6-2.4) K/uL [place] # (Auto) (0.0-0.8) K/uL Eos # (Auto) (0.0-0.7) K/uL Baso # (Auto) (0.0-0.1) K/uL Nucleated RBC % /100WBC Nucleated RBCs # K/uL Sodium 139 (136-145) mmol/L Potassium 3.7 (3.5-5.1) mmol/L Chloride 103 (98-107) mmol/L Carbon Dioxide 26.9 (21.0-32.0) mmol/L BUN 25 H (7.0-18.0) mg/dL Creatinine 0.9 (0.6-1.0) mg/dL Est Cr Clr Drug Dosing 65.45 mL/min Estimated GFR (MDRD) > 60.0 ml/min Glucose 116 H (74-106) mg/dL POC Glucose 111 H (70-99) mg/dL Calcium 9.1 (8.5-10.1) mg/dL Total Bilirubin 0.4 (0.2-1.0) mg/dL AST 31 (15-37) IU/L ALT 33 (14-63) IU/L Alkaline Phosphatase 92 (46-116) U/L Troponin I < 0.050 (0.000-0.056) ng/mL Total Protein 7.7 (6.4-8.2) g/dL Albumin 3.9 (3.4-5.0) g/dL Globulin 3.8 (2.6-4.0) g/dL Albumin/Globulin Ratio 1.0 (0.9-1.6) SARS-CoV-2 RNA (MARIE) NEGATIVE (NEGATIVE) 02/25/21 02/25/21 Range/Units 07:11 07:11 WBC 6.63 (4.0-11.0) K/uL RBC 4.42 (4.30-5.90) M/uL Hgb 12.9 (12.0-16.0) g/dL Hct 39.5 (36.0-46.0) % MCV 89.4 (80.0-98.0) fL MCH 29.2 (27.0-32.0) pg MCHC 32.7 (31.0-37.0) g/dL RDW Std Deviation 41.1 (28.0-62.0) fl RDW Coeff of Mary 13 (11.0-15.0) % Plt Count 348 (150-400) K/uL MPV 9.10 (7.40-12.00) fL Neut % (Auto) 82.6 H (48.0-80.0) % Lymph % (Auto) 13.6 L (16.0-40.0) % [place] % (Auto) 3.8 (0.0-15.0) % Eos % (Auto) 0.0 (0.0-7.0) % Baso % (Auto) 0.0 (0.0-1.5) % Neut # (Auto) 5.5 (1.4-5.7) K/uL Lymph # (Auto) 0.9 (0.6-2.4) K/uL [place] # (Auto) 0.3 (0.0-0.8) K/uL Eos # (Auto) 0.0 (0.0-0.7) K/uL Baso # (Auto) 0.0 (0.0-0.1) K/uL Nucleated RBC % 0.0 /100WBC Nucleated RBCs # 0 K/uL Sodium 138 (136-145) mmol/L Potassium 4.0 (3.5-5.1) mmol/L Chloride 100 (98-107) mmol/L Carbon Dioxide 26.3 (21.0-32.0) mmol/L BUN 20 H (7.0-18.0) mg/dL Creatinine 0.8 (0.6-1.0) mg/dL Est Cr Clr Drug Dosing 65.38 mL/min Estimated GFR (MDRD) > 60.0 ml/min Glucose 120 H (74-106) mg/dL POC Glucose (70-99) mg/dL Calcium 9.0 (8.5-10.1) mg/dL Total Bilirubin 0.5 (0.2-1.0) mg/dL AST 24 (15-37) IU/L ALT 31 (14-63) IU/L Alkaline Phosphatase 74 (46-116) U/L Troponin I (0.000-0.056) ng/mL Total Protein 7.3 (6.4-8.2) g/dL Albumin 3.6 (3.4-5.0) g/dL Globulin 3.7 (2.6-4.0) g/dL Albumin/Globulin Ratio 1.0 (0.9-1.6) SARS-CoV-2 RNA (MARIE) (NEGATIVE) Med Orders - Current: Current Medications Clopidogrel Bisulfate (Clopidogrel 75 Mg Tab) 75 mg PO DAILY [facility] Last Admin: 02/25/21 08:37 Dose: 75 mg Documented by: Enoxaparin Sodium (Enoxaparin 40 Mg/0.4 Ml Syringe) 40 mg SUBCUT Q24H [facility] Last Admin: 02/24/21 18:57 Dose: 40 mg Documented by: Lisinopril (Lisinopril 10 Mg Tab) 10 mg PO DAILY [facility] Last Admin: 02/25/21 08:36 Dose: 10 mg Documented by: Pantoprazole Sodium (Pantoprazole 40 Mg Tab.Cr) 40 mg PO DAILY [facility] Last Admin: 02/25/21 08:37 Dose: 40 mg Documented by: Discontinued Medications Aspirin (Aspirin 325 Mg Tab) 325 mg PO STAT STA Stop: 02/24/21 14:46 Last Admin: 02/24/21 14:58 Dose: 325 mg Documented by: Diphenhydramine HCl (Diphenhydramine 50 Mg/Ml Sdv) 50 mg IVPUSH ONETIME ONE Stop: 02/24/21 16:14 Last Admin: 02/24/21 16:15 Dose: 50 mg Documented by: Diphenhydramine HCl (Diphenhydramine 50 Mg/Ml Sdv) Confirm Administered Dose 50 mg .ROUTE .STK-MED ONE Stop: 02/24/21 16:15 Last Admin: 02/24/21 18:48 Dose: Not Given Documented by: Iopamidol (Iopamidol 755 Mg/Ml 500 Ml Multipack Bottle) 100 ml IVPUSH ONETIME ONE Stop: 02/24/21 17:00 Last Admin: 02/24/21 16:59 Dose: 100 ml Documented by: Methylprednisolone Sodium Succinate (Methylprednisolone Sodium Succinate 125 Mg/2 Ml Sdv) 125 mg IVPUSH ONETIME ONE Stop: 02/24/21 16:14 Last Admin: 02/24/21 16:15 Dose: 125 mg Documented by: Methylprednisolone Sodium Succinate (Methylprednisolone Sodium Succinate 125 Mg/2 Ml Sdv) Confirm Administered Dose 125 mg .ROUTE .STK-MED ONE Stop: 02/24/21 16:15 Last Admin: 02/24/21 18:49 Dose: Not Given Documented by:
== END 2021-02-25 15:25 | disposition home or self-care (01) ==
LOC: MW.ED 13:47 → MW.MS 15:47
PROVIDERS: ADMIT Internal Medicine; ATTEND Internal Medicine
DX: I63.81 Other cerebral infarction due to occlusion or stenosis of small artery (principal); I10 Essential (primary) hypertension; E11.9 Type 2 diabetes mellitus without complications; Z86.73 Personal history of transient ischemic attack (TIA), and cerebral infarction without residual deficits; Z79.899 Other long term (current) drug therapy; Z79.84 Long term (current) use of oral hypoglycemic drugs; Z20.822 Contact with and (suspected) exposure to COVID-19
CPT/HCPCS: 36415; 70450; 70496; 70498; 70551; 80053; 82947; 84484; 85025; 85610; 85730; 87635; 96372; 96374; 96375; 99285; A9270; G0378; J1200; J1650; J2930; Q9967; U0002

== ENCOUNTER 2023-06-09 14:49 | Emergency (ER) | payer BC ==
[2023-06-09 14:59] VITALS: BP 125/88; PULSE 100
== END 2023-06-09 16:11 | disposition home or self-care (01) ==
LOC: MW.ED 14:49
DX: S82.54XA Nondisplaced fracture of medial malleolus of right tibia, initial encounter for closed fracture (principal); I10 Essential (primary) hypertension; E11.9 Type 2 diabetes mellitus without complications; Z90.710 Acquired absence of both cervix and uterus; Z79.84 Long term (current) use of oral hypoglycemic drugs; Z79.899 Other long term (current) drug therapy; Z91.041 Radiographic dye allergy status; W17.89XA Other fall from one level to another, initial encounter; Y93.39 Activity, other involving climbing, rappelling and jumping off
CPT/HCPCS: 29515; 73610-26-RT; 73610-RT; 73630-26-RT; 73630-RT; 99283; 99283-25

== ENCOUNTER 2023-12-31 06:42 | Day surgery (SDC) | payer BC ==
[~2023-12-31 06:42] MED LIST: Sodium Chloride 0.9% 10 ML Syringe FLUSH PRN; Sodium Chloride 0.9% 2.5 ML Syringe FLUSH PRN; Sodium Chloride 0.9% 20 ML SDV IV PRN
[2023-12-31] MEDS: Lactated Ringers 1,000 ML IV SCH (07:08)
[2023-12-31] MEDS ORDERED: Propofol 200 MG/20 ML SDV ONE ×2 (07:41)
[2023-12-31] MEDS ORDERED: Lidocaine 2% 5 ML SDV ONE (07:41)
[2023-12-31 08:53] VITALS: BP 101/67; PULSE 80
== END 2023-12-31 09:00 | disposition home or self-care (01) ==
LOC: MW.SDS 06:42
PROVIDERS: ATTEND Surgery
DX: Z12.11 Encounter for screening for malignant neoplasm of colon (principal); I10 Essential (primary) hypertension; E78.00 Pure hypercholesterolemia, unspecified; E11.9 Type 2 diabetes mellitus without complications; Z79.84 Long term (current) use of oral hypoglycemic drugs; Z79.899 Other long term (current) drug therapy; Z88.8 Allergy status to other drugs, medicaments and biological substances
CPT/HCPCS: 45378; J2704; J7120; J3490